=== PATIENT | male | born 1960 | race Caucasian/White ===

== ENCOUNTER 2018-10-24 16:39 | Emergency (ER) | payer MEDICARE, OTHER ==
[2018-10-24 16:40] VITALS: BMI 22.5
[2018-10-24 17:04] VITALS: RESP 18; TEMP 98; O2SAT 99
[2018-10-24] MEDS ORDERED: TDAP Vaccine 0.5 mL Syr IM ONE (17:22)
[2018-10-24] MEDS ORDERED: Tmp-Smz 800 mg-160 mg DS Tab PO STA (17:22)
--- NOTE | 2018-10-24 17:28 | ED PDOC ---
Arrival/HPI - General Chief Complaint: Abnormal Skin Integrity Time Seen by Provider: 10/24/18 16:41 Historian: Patient - History of Present Illness Narrative History of Present Illness (Text): 10/24/18 17:30 58-year-old male with no significant past medical history, presents complaining of red, swollen, painful mass to the left lower quadrant of the abdomen which she states is open and is draining for the past few days. Otherwise patient reports no fever, chills, abdominal pain, nausea, vomiting, urinary symptoms. Past Medical History - Infectious Disease Hx of Infectious Diseases: None - Tetanus Immunization Tetanus Immunization: Unknown - Cardiac Hx Cardiac Disorders: Yes - Pulmonary Hx Respiratory Disorders: Yes Hx Asthma: Yes - Neurological Hx Neurological Disorder: No - HEENT Hx HEENT Disorder: No - Renal Hx Renal Disorder: No - Endocrine/Metabolic Hx Endocrine Disorders: No - Hematological/Oncological Hx Blood Disorders: No - Integumentary Hx Dermatological Disorder: No - Musculoskeletal/Rheumatological Hx Musculoskeletal Disorders: Yes Hx Back Pain: Yes - Gastrointestinal Hx Gastrointestinal Disorders: No - Genitourinary/Gynecological Hx Genitourinary Disorders: No - Psychiatric Hx Psychophysiologic Disorder: No Hx Substance Use: No - Anesthesia Hx Anesthesia: No Family/Social History Family/Social History: No Known Family HX Smoking Status: Heavy Smoker > 10 Cigarettes Daily Hx Alcohol Use: No Hx Substance Use: No Allergies/Home Meds Allergies/Adverse Reactions: Allergies No Known Allergies Allergy (Verified 03/17/16 09:54) Home Medications: Home Meds Medication Instructions Recorded Confirmed Atorvastatin [Lipitor] 40 mg PO DAILY 08/15/15 03/17/16 Fluticasone/Salmeterol [Advair 1 puff INH BID 08/15/15 03/17/16 500-50 Diskus] Review of Systems - Review of Systems Constitutional: absent: Fatigue, Fevers Gastrointestinal: absent: Abdominal Pain, Diarrhea, Nausea, Vomiting Genitourinary Male: absent: Dysuria, Frequency Musculoskeletal: absent: Arthralgias, Back Pain Skin: Abscess. absent: Rash, Skin Lesions Physical Exam Vital Signs Temp Pulse Resp BP Pulse Ox 10/24/18 17:01 98 F 98 H 18 125/84 99 Temperature: Afebrile Blood Pressure: Normal Pulse: Regular Respiratory Rate: Normal Appearance: Positive for: Well-Appearing, Non-Toxic, Comfortable Pain Distress: None Mental Status: Positive for: Alert and Oriented X 3 - Systems Exam Abdomen: No: Tenderness, Distention, Peritoneal Signs, Rebound, Guarding Upper Extremity: Present: Normal Inspection. No: Edema Lower Extremity: Present: Normal Inspection. No: Edema Neurological: Present: GCS=15, CN II-XII Intact, Speech Normal, Motor Func Grossly Intact, Normal Sensory Function Skin: Present: Warm, Dry, Normal Color, Abscess (+open erythematous, mildly tender to palpation, non-draining abscess to the LLQ of the abdomen without surrounding erythema). No: Rashes Lymphatic: No: Inguinal Adenopathy Psychiatric: Present: Alert, Oriented x 3, Normal Insight, Normal Concentration Medical Decision Making ED Course and Treatment: 10/24/18 17:25 Wound cleaned and irrigated with normal saline. Clean dressing applied. Diagnosis of abscess discussed with the patient. Considering that the wound is open, there is no active drainage, incision and drainage is not required at this time. Advised to continue to apply warm compresses and to take antibiotics as prescribed. Patient given tetanus, Keflex, and Bactrim. Advised to follow up with primary care physician or referral provided in 1-2 d ays without fail. Advised to take medication as prescribed. Return to the emergency room at any time for any new or worsening symptoms. Patient states he fully agrees with and understands discharge instructions. States that he agrees with the plan and disposition. Verbalized and repeated discharge instructions and plan. I have given the patient opportunity to ask any additional questions. - PA / NURSE'S ASSISTANT / Resident Statement MD/DO has reviewed & agrees with the documentation as recorded. Disposition/Present on Arrival - Present on Arrival Any Indicators Present on Arrival: No History of DVT/PE: No History of Uncontrolled Diabetes: No Urinary Catheter: No History of Decub. Ulcer: No History Surgical Site Infection Following: None - Disposition Have Diagnosis and Disposition been Completed?: Yes Diagnosis: Abscess Disposition: HOME/ ROUTINE Disposition Time: 17:20 Patient Plan: Discharge Condition: STABLE Discharge Instructions (ExitCare): Skin Abscess Additional Instructions: Thank you for letting us take care of you today. You were treated for abscess. The emergency medical care you received today was directed at your acute symptoms. If you were prescribed any medication, please fill it and take as directed. It may take several days for your symptoms to resolve. Return to the Emergency Department if your symptoms worsen, do not improve, or if you have any other problems. Please contact your doctor in 2 days for re-evaluation and follow up / or call one of the physicians/clinics you have been referred to that are listed on the Patient Visit Information form that is included in your discharge packet. Bring any paperwork you were given at discharge with you along with any medications you are taking to your follow up visit. Our treatment cannot replace ongoing medical care by a primary care provider (PCP) outside of the emergency department. Thank you for allowing the [facility] team to be part of your care today. Prescriptions: Cephalexin [Keflex] 500 mg PO Q6 #28 capsule Sulfamethoxazole/Trimethoprim [Bactrim DS 800 mg-160 mg] 2 tab PO BID #28 tab Referrals: Harlan Dave MD [Medical Doctor] - [place] [facility] [place] [facility] [place] - Follow up with primary Forms: [employer] (Slovak), WORK NOTE
[2018-10-24 18:42] VITALS: BP 125/72; PULSE 88
== END 2018-10-24 18:40 | disposition home or self-care (01) ==
LOC: ED 16:39
DX: L02.211 Cutaneous abscess of abdominal wall (principal); F17.210 Nicotine dependence, cigarettes, uncomplicated; Z23 Encounter for immunization